=== PATIENT | male | born 1960 | race Caucasian/White ===

== ENCOUNTER 2021-09-10 09:57 | Day surgery (SDC) | payer OTHER ==
[~2021-09-10] VITALS: Ht 180.3 cm; Wt 73.6 kg
[~2021-09-10 09:57] MED LIST: IBUP400 PO; OXYACE5T PO
--- NOTE | 2021-09-10 12:23 | NUR ---
09/10/21 1223 Yoli Perez History, Chart, Medications and Allergies reviewed before start of procedure. Patient confirms NPO status and agrees with scheduled surgery. 3-LEAD EKG REVIEWED WITH PHYSICIAN PRIOR TO START OF PROCEDURE. MONITOR INTACT WITH CONTINUOUS PULSE OXIMETRY AND INTERMITTENT BP. PATIENT DETERMINED TO BE ASA APPROPRIATE FOR PROPOFOL SEDATION PRIOR TO START OF PROCEDURE BY DR. SALAZAR
--- NOTE | 2021-09-10 13:01 | NUR ---
1255- DR SALAZAR AT BEDSIDE SPEAKING TO PATIENT AND ANSWERING QUESTIONS. TOLERATING PO FLUIDS.
--- NOTE | 2021-09-10 13:06 | NUR ---
VSS. UP TO DRESS WITH STEADY GAIT.
== END 2021-09-10 13:12 | disposition home or self-care (01) ==
LOC: ORSCMMR 09:57 → ORD 11:45 → ORSCMMR 11:45
PROVIDERS: Surgery
PROC: 0DBN8ZX Excision of Sigmoid Colon, Via Natural or Artificial Opening Endoscopic, Diagnostic (ICD-10-PCS; principal; 2021-09-10 11:45)
PROC: 0DBM8ZX Excision of Descending Colon, Via Natural or Artificial Opening Endoscopic, Diagnostic (ICD-10-PCS; principal; 2021-09-10 11:45)
PROC: 0DBP8ZX Excision of Rectum, Via Natural or Artificial Opening Endoscopic, Diagnostic (ICD-10-PCS; principal; 2021-09-10 11:45)
DX: Z12.11 Encounter for screening for malignant neoplasm of colon (principal); D12.4 Benign neoplasm of descending colon; D12.5 Benign neoplasm of sigmoid colon; D12.8 Benign neoplasm of rectum
CPT/HCPCS: 88305; J2704; J7120